=== PATIENT | female | born 1960 | race Two or more races ===

== ENCOUNTER 2021-04-03 15:30 | Emergency (ER) | payer MEDICAID ==
[~2021-04-03] VITALS: Ht 160 cm; Wt 68.5 kg
[2021-04-03] MEDS ORDERED: IV NS 0.9% 500 ML BAG IV ONE (16:00)
[2021-04-03 17:38] LABS: BASOPHILS % (AUTO) 0.1 % (0.0-2.0); EOSINOPHILS % (AUTO) 4.1 % (0.0-6.0); HEMATOCRIT 41 % (33-45); HEMOGLOBIN 13.2 g/dL (11.5-14.8); LYMPHOCYTES # (AUTO) 0.5 K/uL (0.8-4.8); LYMPHOCYTES % (AUTO) 2.6 % (20.0-44.0); MEAN CORPUSCULAR HGB CONC 32 g/dl (31.0-36.0); MEAN CORPUSCULAR VOLUME 105 fL (82-100); MONOCYTES # (AUTO) 0.1 K/uL (0.1-1.30); MONOCYTES % (AUTO) 0.5 % (2.0-12.0); NEUTROPHILS # (AUTO) 16.7 K/uL (1.8-8.9); NEUTROPHILS % (AUTO) 92.7 % (43.0-81.0); PLATELET COUNT (AUTO) 114 K/uL (150-450); RED BLOOD CELL COUNT(AUTO) 3.92 MIL/uL (4.0-5.2)
[2021-04-03 18:07] LABS: ALANINE AMINOTRANSFERASE 26 U/L (12-78); ALBUMIN 1.6 g/dL (3.4-5.0); ALKALINE PHOSPHATASE 290 U/L (46-116); ASPARTATE AMINOTRANSFERASE 61 U/L (15-37); BILIRUBIN,DIRECT 1.1 mg/dL (0.0-0.2); BILIRUBIN,TOTAL 1.5 mg/dL (0.2-1.0); CALCIUM, SERUM 8.2 mg/dL (8.5-10.1); CHLORIDE 109 mmol/L (98-107); CREATININE 1.8 mg/dL (0.6-1.3); GLUCOSE 219 mg/dL (74-106); POTASSIUM 5.7 mmol/L (3.5-5.1); SODIUM SERUM 139 mmol/L (136-145); TOTAL PROTEIN, SERUM 7.1 g/dL (6.4-8.2); UREA NITROGEN, BLOOD 28 mg/dL (7-18)
[2021-04-03 18:13] LABS: CARBON DIOXIDE 6 mmol/L (21-32)
[2021-04-03] MEDS ORDERED: CEFTRIAXONE 1GM BAG (ER ONLY) 50 ML IV ONE ×2 (18:30→19:00)
[2021-04-03] MEDS ORDERED: IV NS 0.9% 1,000 ML BAG IV ONE (18:30)
[2021-04-03 18:49] LABS: BILIRUBIN,URINE SMALL (NEGATIVE); COLOR,URINE YELLOW (YELLOW); LEUKOCYTE ESTERASE ,URINE MODERATE (NEGATIVE); NITRITE, URINE NEGATIVE (NEGATIVE); PROTEIN,URINE TRACE mg/dl (NEGATIVE); UGLUCOSE NEGATIVE (NEGATIVE)
[2021-04-03 18:55] LABS: BAND % (MANUAL) 7 % (0.0-5.0); LYMPHOCYTES % (MANUAL) 4 % (16-48); MONOCYTES % (MANUAL) 5 % (0-11.0); NEUTROPHILS % (MANUAL) 84 (42-76)
[2021-04-03 18:58] LABS: RBC,URINE 21-50 /HPF (0-2)
[2021-04-03 18:59] LABS: BACTERIA,URINE 4+ /HPF (None Seen); WBC,URINE 21-50 /HPF (0-3)
[2021-04-03] MEDS ORDERED: ONDANSETRON HCL/PF 4 MG/2 ML VIAL IVP PRN (20:30)
[2021-04-03] MEDS ORDERED: ZOLPIDEM TARTRATE 5 MG TABLET PO PRN (20:30)
[2021-04-03] MEDS ORDERED: DEXTROSE 50%-WATER 50 ML DISP.SYRIN IVP ONE (20:30)
[2021-04-03] MEDS ORDERED: ACETAMINOPHEN 325 MG TABLET PO PRN (20:30)
[2021-04-03] MEDS ORDERED: PANTOPRAZOLE 40 MG VIAL IV SCH (20:30)
[2021-04-03] MEDS ORDERED: Calcium Gluconate 1GM/10ML 4.65 MEQ in IV D5W 50 ML IV ONE (20:30)
[2021-04-03] MEDS ORDERED: IV NS 0.9% 1,000 ML IV PRN (20:30)
[2021-04-03] MEDS ORDERED: MAGNESIUM HYDROXIDE 30 ML UDC PO PRN (20:30)
[2021-04-03] MEDS ORDERED: INSULIN REGULAR, HUMAN 100 UNIT/ML 10 ML VIAL IV ONE (20:30)
[2021-04-03 20:47] LABS: ABG BASE EXCESS -21.6 mmol/L; ABG PCO2 15.8 mmHg (35.0-45.0); ABG PH 7.141 (7.350-7.450); ABG PO2 110.2 mmHg (75.0-100.0); COHb 0.3 % (0.5-1.5); MetHb 0.2 % (0.0-1.5); O2Hb 96.1 % (94.0-97.0); SITE, ABG Left Radial; VENT MODE, BG RA
[2021-04-03] MEDS ORDERED: HEPARIN SODIUM, PORCINE 5000 UNITS/1 ML VIAL SQ SCH (21:00)
[2021-04-03] MEDS ORDERED: DEXTROSE 50%-WATER 50 ML DISP.SYRIN IV PRN (21:00)
[2021-04-03] MEDS ORDERED: Sodium Bicarbonate 150 MEQ in IV NS 0.9% 1,000 ML IV SCH (21:00)
[2021-04-03] MEDS ORDERED: MEROPENEM 1 G in IV NS 0.9% 100 ML IV SCH (21:00)
[2021-04-03] MEDS ORDERED: INSULIN REGULAR, HUMAN 100 UNIT/ML 3 ML VIAL SQ PRN (21:00)
[2021-04-03] MEDS ORDERED: SODIUM BICARBONATE SYR 50 MEQ/50 ML DISP.SYRIN IV ONE (21:00)
[2021-04-03] MEDS ORDERED: DEXTROSE 50%-WATER 50 ML DISP.SYRIN ONE (21:32)
[2021-04-03] MEDS ORDERED: PANTOPRAZOLE 40 MG VIAL ONE (21:32)
[2021-04-03] MEDS ORDERED: HEPARIN SODIUM, PORCINE 5000 UNITS/1 ML VIAL ONE (21:36)
[2021-04-03] MEDS ORDERED: Sodium Bicarbonate 50 MEQ/50 ML VIAL IV ONE (21:48)
[2021-04-03] MEDS ORDERED: VANCOMYCIN 1 GM in IV D5W 250 ML IV SCH (22:00)
[2021-04-04] MEDS ORDERED: BLOOD SUGAR DIAGNOSTIC 1 EACH STRIP IN SCH
[2021-04-04 06:43] VITALS: BP 0/0
== END 2021-04-04 01:39 ==
LOC: ER 15:36 → UNDOADMIN 20:24 → TRANSITION 20:24 → ER 04-04 01:39 → TRANSITION 04-04 03:43
DX: A41.9 Sepsis, unspecified organism (principal); E87.2 Acidosis; E11.9 Type 2 diabetes mellitus without complications; I11.0 Hypertensive heart disease with heart failure; E87.5 Hyperkalemia; Z66 Do not resuscitate; I50.9 Heart failure, unspecified; R82.81 Pyuria; R65.20 Severe sepsis without septic shock; N17.9 Acute kidney failure, unspecified; Z86.73 Personal history of transient ischemic attack (TIA), and cerebral infarction without residual deficits; G93.40 Encephalopathy, unspecified; Z51.5 Encounter for palliative care
CPT/HCPCS: 36415; 36600; 70450; 71045; 80048; 80076; 81001; 82140; 82962; 83605 ×2; 84145; 84484; 85007; 85025; 85730; 87040 ×2; 87077 ×2; 87081; 87086; 87186 ×2; 87426; 93005; 96365; 96367; 96372; 96375 ×2; 99285; C9113; C9803; J0610; J0696; J1644; J1815; J2185; J3370; J7030 ×2; J7040; J7060; G0378; J3490